=== PATIENT | female | born 1955 | race Caucasian/White ===

== ENCOUNTER 2023-08-06 11:13 | Inpatient (IN) ==
[2023-08-06] MEDS ORDERED: Ondansetron 4 mg VIAL 2 MG/ML 2 ml VIAL ONE (13:20)
[2023-08-06] MEDS: Prochlorperazine 5 mg/ml 2 ml VIAL (10 mg) IV ONE (13:25)
[2023-08-06 13:30] LABS: ABS Lymphocytes 0.7 10^3/uL (1.0-4.8); ABS Monocytes 0.5 10^3/uL (0.0-0.9); ABS Neutrophils 5.6 10^3/uL (1.5-7.6); ABS Nucleated RBC 0.01 10^3/ul; Eosinophil % 0.5 %; Hematocrit 30.7 % (35-45); Hemoglobin 10.4 g/dL (11.5-14.3); Lymphocyte % 9.8 %; Mean Corpuscular Volume 82.4 fL (80-97); Mean Platelet Volume 7.3 fL (7.5-11.2); Nucleated Red Blood Cells % 0.1 %/100WBC (0.0-0.8); Platelet Count 201 10^3/uL (150-450); Red Blood Count 3.73 10^6/uL (3.63-4.92); Red Cell Distribution Width 17.2 % (12-17); White Blood Count 6.8 10^3/uL (3.8-11.8)
[2023-08-06 13:44] LABS: INR 1.1 (0.83-1.13)
[2023-08-06] MEDS ORDERED: Morphine 4 MG/ML VIAL (1 ml) ONE (13:47)
[2023-08-06] MEDS: fentaNYL 100 mcg/2 ml 50 MCG/ML VIAL IV SLOW PU ONE (13:57)
[2023-08-06] MEDS: Iodixanol (CONTRAST) 320 MG/ML 100 ML SDV IV ONE (14:10)
[2023-08-06 14:12] LABS: Albumin 3.8 g/dL (3.2-5.2); Albumin/Globulin Ratio 1.6 (1-3); Calcium 8.6 mg/dL (8.6-10.3); Creatinine, Serum 1.05 mg/dL (0.51-0.95); Globulin 2.4 g/dL (2-4); Potassium 4.2 mmol/L (3.5-5.0); Total Bilirubin 0.5 mg/dL (0.2-1.0); Total Protein 6.2 g/dL (6.4-8.9); eGFR CKD-EPI 57.9 (>60)
[2023-08-06 15:16] LABS: High Sensitivity Troponin 1 Hr 22 pg/mL (<15)
[2023-08-06] MEDS: Furosemide 40 mg/4 ml IV VIAL IV ONE ×2 (15:35→15:37)
[2023-08-06] MEDS ORDERED: nitroGLYCERIN DRIP 25,000 MCG/250 ML BTL IV SCH (16:00)
[2023-08-06] MEDS: methylPREDNISolone SOD SUCC 40 mg/ml 1 ml VIAL IV SCH (22:23)
[2023-08-07 01:05] LABS: C Reactive Protein 37.49 mg/L (<8.01)
[2023-08-07 01:58] LABS: Erythrocyte Sed Rate 59 mm/Hr (0-29)
[2023-08-07 01:59] LABS: High Sensitivity Troponin 1 Hr 59 pg/mL (<15)
[2023-08-07 04:07] LABS: High Sensitivity Troponin 3 Hr 62 pg/mL (<15)
[2023-08-07 05:38] LABS: ABS Lymphocytes 0.3 10^3/uL (1.0-4.8); ABS Monocytes 0.1 10^3/uL (0.0-0.9); ABS Neutrophils 5.9 10^3/uL (1.5-7.6); ABS Nucleated RBC 0.01 10^3/ul; Eosinophil % 0.1 %; Hematocrit 29.3 % (35-45); Lymphocyte % 4.2 %; Mean Corpuscular Volume 82.4 fL (80-97); Mean Platelet Volume 7.3 fL (7.5-11.2); Nucleated Red Blood Cells % 0.2 %/100WBC (0.0-0.8); Platelet Count 175 10^3/uL (150-450); Red Blood Count 3.56 10^6/uL (3.63-4.92); Red Cell Distribution Width 17.4 % (12-17); White Blood Count 6.3 10^3/uL (3.8-11.8)
[2023-08-07 06:23] LABS: Calcium 8.7 mg/dL (8.6-10.3); Creatinine, Serum 1.15 mg/dL (0.51-0.95); Magnesium 1.9 mg/dL (1.9-2.7); Potassium 4.6 mmol/L (3.5-5.0); eGFR CKD-EPI 51.9 (>60)
[2023-08-07 10:27] LABS: Osmolality Serum 271 mOsm/kg (275-295)
[2023-08-07] MEDS: Furosemide 40 mg/4 ml IV VIAL IV SLOW PU ONE ×2 (10:31→17:18)
[2023-08-07 19:43] LABS: Urine Osmo 239 mOsm/kg (150-1150)
[2023-08-07 23:27] LABS: Urine Appearance Turbid; Urine Bilirubin Negative (Negative); Urine Blood 3+ (Negative); Urine Color Colorless; Urine Glucose Negative (Negative); Urine Ketones Negative (Negative); Urine Nitrite Negative (Negative); Urine Protein 1+ (>=30 mg/dL) (Negative); Urine Urobilinogen Negative (Negative); Urine pH 5.5 (5.0-8.0)
[2023-08-07 23:32] LABS: Urine Bacteria 1+ /HPF (Absent); Urine Red Blood Cell 3+(>10/hpf) /HPF (0-Trace); Urine Squamous Epithelial Cell Present /HPF (Absent); Urine White Blood Cell 3+(>20/hpf) /HPF (0-Trace)
[2023-08-08 07:09] LABS: ABS Eosinophils 0.2 10^3/uL (0.0-0.5); ABS Lymphocytes 0.8 10^3/uL (1.0-4.8); ABS Monocytes 0.6 10^3/uL (0.0-0.9); ABS Neutrophils 5.4 10^3/uL (1.5-7.6); ABS Nucleated RBC 0.01 10^3/ul; Eosinophil % 2.7 %; Hemoglobin 9.8 g/dL (11.5-14.3); Lymphocyte % 11.3 %; Mean Corpuscular Hemoglobin 28.1 pg (27-33); Mean Corpuscular Hgb Conc 33.7 g/dL (31-36); Mean Corpuscular Volume 83.5 fL (80-97); Mean Platelet Volume 7.6 fL (7.5-11.2); Nucleated Red Blood Cells % 0.1 %/100WBC (0.0-0.8); Platelet Count 208 10^3/uL (150-450); Red Blood Count 3.47 10^6/uL (3.63-4.92); Red Cell Distribution Width 18.1 % (12-17)
[2023-08-08 08:32] LABS: Calcium 8.6 mg/dL (8.6-10.3); Creatinine, Serum 1.3 mg/dL (0.51-0.95); Magnesium 1.9 mg/dL (1.9-2.7); Potassium 4.3 mmol/L (3.5-5.0); eGFR CKD-EPI 44.8 (>60)
[2023-08-08] MEDS: Furosemide 40 mg/4 ml IV VIAL IV SLOW PU ONE ×2 (09:13→14:30)
[2023-08-08] MEDS ORDERED: Magnesium Hydroxide LIQ 30 ML UDC PO PRN (10:51)
[2023-08-08] MEDS: Senna TAB 8.6 mg TAB PO PRN (11:56)
[2023-08-09 06:02] VITALS: BP 163/83
[2023-08-09 06:48] LABS: ABS Lymphocytes 0.3 10^3/uL (1.0-4.8); ABS Monocytes 0.2 10^3/uL (0.0-0.9); ABS Neutrophils 4.6 10^3/uL (1.5-7.6); Eosinophil % 0.1 %; Hematocrit 27.8 % (35-45); Hemoglobin 9.6 g/dL (11.5-14.3); Lymphocyte % 6.6 %; Mean Corpuscular Hemoglobin 28.4 pg (27-33); Mean Corpuscular Hgb Conc 34.4 g/dL (31-36); Mean Corpuscular Volume 82.7 fL (80-97); Mean Platelet Volume 7.6 fL (7.5-11.2); Nucleated Red Blood Cells % 0.1 %/100WBC (0.0-0.8); Platelet Count 198 10^3/uL (150-450); Red Blood Count 3.36 10^6/uL (3.63-4.92); Red Cell Distribution Width 17.5 % (12-17); White Blood Count 5.2 10^3/uL (3.8-11.8)
[2023-08-09 07:00] LABS: Calcium 8.7 mg/dL (8.6-10.3); Creatinine, Serum 1.18 mg/dL (0.51-0.95); Magnesium 1.9 mg/dL (1.9-2.7); Potassium 4.3 mmol/L (3.5-5.0); eGFR CKD-EPI 50.3 (>60)
[2023-08-11 16:54] LABS: Fungitell Qualitative Result Negative (Negative); Fungitell Quantitative Value <31 pg/mL (<60 pg/mL)
[2023-08-12 13:37] LABS: Aspergillus (Galactomannan) Ag <0.500 index (<0.5)
== END 2023-08-09 15:55 | disposition home or self-care (01) | DRG 189 ==
LOC: EDHOLD 11:13 → ED 11:13 → OBSVTOIN 19:49 → INTOOBSV 19:49 → SUATTDRO 19:49 → MEDTELE 08-07 11:04
PROVIDERS: ADMIT Student in an Organized Health Care Education/Training Program; ATTEND Internal Medicine